=== PATIENT | female | born 1930 ===

== ENCOUNTER 2018-07-22 13:57 | Emergency (ER) | payer OTHER ==
[~2018-07-22] VITALS: Ht 157.5 cm; Wt 79.8 kg
[2018-07-22] MEDS ORDERED: VASOTEC10 MG (14:33)
== END 2018-07-22 18:19 | disposition home or self-care (01) ==
LOC: ER 13:57
DX: N61.0 Mastitis without abscess (principal); L73.2 Hidradenitis suppurativa